=== PATIENT | female | born 2000 | race African-American/Black ===

== ENCOUNTER 2019-04-30 20:01 | Emergency (ER) | payer OTHER ==
[2019-04-30] MEDS ORDERED: DEXAMETHASONE LIQUID 0.5 MG/5 ML 240 ML BULK BOTTLE PO ONE (20:12)
--- NOTE | 2019-04-30 20:12 | PDOC ---
Rapid Medical Evaluation Time Seen by Provider: 04/30/19 20:10 Medical Evaluation: Allergies Allergy/AdvReac Type Severity Reaction Status Date / Time No Known Allergies Allergy Verified 04/30/19 20:10 04/30/19 20:10 HPI: Sore throat x2 days PE: Erythemic with exudate ORDERS: Decadron and Rapid strep Discharge Disposition - Diagnosis Acute pharyngitis - Referrals - Patient Instructions - Post Discharge Activity
[2019-04-30 20:14] VITALS: BP 126/83; BMI 31.7
[2019-04-30] MEDS ORDERED: DEXAMETHASONE SOD PHOSPHATE 10 MG/1 ML VIAL ONE (20:41)
[2019-04-30] MEDS ORDERED: KETOROLAC TROMETHAMINE 30 MG/1 ML VIAL IM ONE (20:47)
[2019-04-30] MEDS ORDERED: ACETAMINOPHEN 160 MG/5 ML *Children Solution PO ONE (20:48)
[2019-04-30] MEDS ORDERED: KETOROLAC TROMETHAMINE 30 MG/1 ML VIAL ONE (20:49)
--- NOTE | 2019-04-30 21:02 | PDOC ---
History of Present Illness - General Chief Complaint: Sore Throat Stated Complaint: SORE THROAT Time Seen by Provider: 04/30/19 20:10 History Source: Patient - History of Present Illness Initial Comments: 04/30/19 21:43 Chief complaint: Sore throat and fever Patient is a healthy 19-year-old female with 2 days of sore throat and fever. Very painful but able to drink liquids and swallow pills. Patient took Tylenol at 5 PM. GENERAL/CONSTITUTIONAL: +fever, no: weakness. dizziness HEAD, EYES, EARS, NOSE AND THROAT: No change in vision. No ear pain or discharge. + sore throat. CARDIOVASCULAR: No chest pain RESPIRATORY: No shortness of breath or cough GASTROINTESTINAL: No pain, nausea, vomiting, diarrhea or constipation GENITOURINARY: No dysuria MUSCULOSKELETAL: No neck or back pain SKIN: No rash NEUROLOGIC: No headache, vertigo, loss of consciousness, or loss of sensation. GENERAL: The patient is awake, alert, and fully oriented, in no acute distress. HEAD: Normal with no signs of trauma. EYES: Pupils equal, round and reactive to light, sclera anicteric, conjunctiva clear. ENT: pharynx: +erythema, + exudate, uvula midline NECK: supple CHEST: clear, nontender, rr ABD: soft, nontender BACK: no tenderness or signs of injury EXTREMITIES: Normal range of motion, no edema. NEUROLOGICAL: Normal speech, normal gait. SKIN: Warm, Dry Past History - Past Medical History Allergies/Adverse Reactions: Allergies Allergy/AdvReac Type Severity Reaction Status Date / Time No Known Allergies Allergy Verified 04/30/19 20:10 Home Medications: Ambulatory Orders Clindamycin [Cleocin -] 300 mg PO Q6HPO #40 capsule 04/30/19 Oxycodone HCl/Acetaminophen [Percocet 5-325 mg Tablet] 1 tab PO Q4H PRN #20 tablet MDD 6 04/30/19 - Suicide/Smoking/Psychosocial Hx Smoking History: Never smoked Hx Alcohol Use: No Drug/Substance Use Hx: No *Physical Exam - Vital Signs Last Vital Signs Temp Pulse Resp BP Pulse Ox 102.2 F H 115 H 20 126/83 100 04/30/19 20:11 04/30/19 20:11 04/30/19 20:11 04/30/19 20:11 04/30/19 20:11 ED Treatment Course - Medications Given in the ED: ED Medications Discontinued Medications Generic Name Dose Route Start Last Admin Trade Name Jose PRN Reason Stop Dose Admin Dexamethasone 10 mg 04/30/19 20:12 04/30/19 20:45 Decadron Liquid - PO 04/30/19 20:13 10 mg ONCE ONE Administration Medical Decision Making - Medical Decision Making 04/30/19 21:46 pt with 2 days of fever and pharyngitis, exudates and erythema, uvula midline, no signs of abscess. Patient has been able to swallow, take pills, drink fluids. patient was given Decadron. Strep swab was sent prior to evaluation. Will give Toradol and Tylenol. strep Was negative, will send a Monospot which will not be back tonight. We'll give patient clindamycin. We'll give patient Percocet for pain. Patient will follow up with ENT tomorrow. Patient knows to return if she gets worse instead of better pt appears in pain but otherwise is totally appropriate and does not appear toxic Discussed issues, findings, results, applicable medications and treatments and follow-up. All these were understood and all questions were answered 04/30/19 21:49 *DC/Admit/Observation/Transfer Diagnosis at time of Disposition: Acute pharyngitis Qualifiers: Pharyngitis/tonsillitis etiology: unspecified etiology Qualified Code(s): J02.9 - Acute pharyngitis, unspecified - Discharge Dispostion Disposition: HOME Condition at time of disposition: Stable Decision to Admit order: No - Prescriptions Prescriptions: Clindamycin [Cleocin -] 300 mg PO Q6HPO #40 capsule Oxycodone HCl/Acetaminophen [Percocet 5-325 mg Tablet] 1 tab PO Q4H PRN #20 tablet MDD 6 PRN Reason: Pain - Referrals Referrals: Joe Loyola MD [Staff Physician] - - Patient Instructions Additional Instructions: Drink 2-3 L of water daily Take clindamycin one capsule every 6 hours for 10 days Take Percocet 1 tab every 4 hours and Motrin 600 mg every 6 hours for fever and pain Return to the nearest ER if short of breath, unable to swallow or feeling sicker Followup with ent in one to 2 days - Post Discharge Activity Forms/Work/School Notes: Back to Work
[2019-04-30 21:41] VITALS: TEMP 101.6
[2019-04-30 21:43] VITALS: PULSE 115
== END 2019-04-30 21:41 | disposition home or self-care (01) ==
LOC: JERFT 20:01
PROC: 3E0233Z Introduction of Anti-inflammatory into Muscle, Percutaneous Approach (ICD-10-PCS; principal; 2019-04-30)
DX: J02.9 Acute pharyngitis, unspecified (principal)
CPT/HCPCS: 36415; 86308; 87070; 87880; 96372; 99282-25

== ENCOUNTER 2021-08-28 13:56 | Emergency (ER) | payer OTHER ==
[2021-08-28 14:05] VITALS: BP 126/76; PULSE 100; TEMP 101; BMI 24.9
[2021-08-28] MEDS ORDERED: ACETAMINOPHEN 325 MG TABLET (FP) PO ONE (15:31)
[2021-08-28] MEDS ORDERED: ACETAMINOPHEN 325 MG TABLET (FP) ONE (15:43)
== END 2021-08-28 16:56 | disposition home or self-care (01) ==
LOC: JER 13:56
DX: B34.9 Viral infection, unspecified (principal); R50.9 Fever, unspecified
CPT/HCPCS: 87804; 87807; 99283-25; C9803; U0003; U0005